=== PATIENT | male | born 1995 | race African-American/Black ===

== ENCOUNTER 2024-06-17 01:14 | Inpatient (IN) | payer MEDICAID, SELFPAY ==
[2024-06-17] VITALS (13 sets, daily range): BP systolic 120–189; BP diastolic 68–102; PULSE 68–92; RESP 16–20; TEMP 36.1–37.1; O2SAT 95–99; BMI 29.4; BMI 32.1
--- NOTE | ~2024-06-17 | XR_ITS ---
CLINICAL HISTORY: Pain; swelling 3 view left hand Comparison: None Findings: No fractures or dislocations. No arthritic change. No erosions. No radiopaque foreign body. IMPRESSION: Generalized soft tissue swelling. No gas or foreign body. No fracture. This document has been electronically signed by: Maggi Brown MD on 06/17/2024 03:03:44
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
[2024-06-17 03:27] LABS: MANUAL DIFF FLAG NO
[2024-06-17 03:28] LABS: Basophils Percent Auto 0.5 % (0-2); Eosinophils Absolute Auto 0.1 X10*3/uL (0.0-0.4); Eosinophils Percent Auto 1.3 % (0-4); Hemoglobin 15.2 g/dl (14.0-18.0); Imm Gran Abs Auto 0.02 X10*3/uL (0.00-0.03); Imm Gran Pct Auto 0.3 % (0.0-0.4); Lymphocytes Absolute Auto 2.8 X10*3/uL (1.2-4.9); Lymphocytes Percent Auto 37.7 % (20-40); Mean Corpuscular HGB Conc 35.3 g/dl (31.0-36.0); Mean Corpuscular Hemoglobin 32.2 pg (27.0-33.0); Mean Corpuscular Volume 91.1 fL (80.0-98.0); Mean Platelet Volume 8.7 fL (9.4-12.4); Monocytes Absolute Auto 0.8 X10*3/uL (0.1-1.2); Monocytes Percent Auto 10.8 % (2-11); Neutrophils Absolute Auto 3.7 x10*3/uL (2.0-8.3); Neutrophils Percent Auto 49.4 % (45-73); Platelet Count 267 X10*3/uL (160-400); Red Blood Count 4.72 X10*6/uL (4.60-5.80); White Blood Count 7.4 X10*3/uL (4.8-10.8)
[2024-06-17] MEDS: Ketorolac Tromethamine 30 MG/ML VIAL IVPUSH (03:40)
[2024-06-17] MEDS: Piperacillin Sodium/Tazobactam 3.375 GM in 0.9 % Sodium Chloride 50 ML IV (03:41)
[2024-06-17 03:43] LABS: Lactic Acid 1.4 mmol/L (0.5-2.0)
[2024-06-17 03:44] LABS: Alanine Aminotransferase 25 U/L (0-40); Albumin Level 4.5 g/dL (3.5-5.0); Anion Gap 16 (12-20); Aspartate Amino Transferase 34 U/L (5-37); Bilirubin Total 0.5 mg/dL (0.0-1.0); Blood Urea Nitrogen 13 mg/dL (9-16); Calcium 10.1 mg/dL (8.4-10.2); Carbon Dioxide 23 mmol/L (22-29); Chloride 110 mmol/L (96-108); Creatinine Clr Calc Pharmacy 119.6; Estimated Glomerular Filt Rate > 60; Glucose Random 88 mg/dL (60-115); Potassium 3.7 mmol/L (3.3-5.1); Sodium 145 mmol/L (135-145); Total Protein 7.4 g/dL (6.5-8.0)
[2024-06-17 03:51] LABS: Alkaline Phosphatase 70 U/L (39-117)
[2024-06-17] MEDS: vancomycin/NS 2,000 MG/500 ML PLAST..BAG 250 MG IV (04:10)
[2024-06-17] MEDS: amLODIPine Besylate 5 MG TABLET PO (05:05)
[2024-06-17] MEDS: Diphth,Pertus(ACell),Tet Adult 0.5 ML SYRINGE IM (05:06)
--- NOTE | 2024-06-17 08:01 | PHA.MEDREC ---
Pharmacy Consult ? Medication Reconciliation Pharmacy has completed the medication reconciliation. Spoke with patient, to confirm he is not on any medication.
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
[2024-06-17] MEDS: Ampicillin Sodium/Sulbactam Na 3 GM in 0.9 % Sodium Chloride 100 ML IV ×3 (09:48→20:39)
[2024-06-17] MEDS: oxyCODONE HCl Immed Release 5 MG TABLET PO ×3 (10:01→20:31)
--- NOTE | 2024-06-17 13:46 | PC.NURSE ---
Pt to the OR
[2024-06-17] MEDS: Lactated Ringers 1,000 ML 80 ML IVCONT ×2 (14:09→20:41)
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
--- NOTE | 2024-06-17 14:25 | PC.NURSE ---
Next dose of scheduled abx due at 1515, pt will likely be in OR or PACU at that time. Pharmacy contacted (spoke with Connie) abx will be delivered to PACU so that it can be given on time.
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
[2024-06-17] MEDS: Acetaminophen 325 MG TABLET 650 MG PO (18:19)
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
[2024-06-17] MEDS: 0.9 % Sodium Chloride Flush 3 ML SYRINGE IVFLUSH (20:44)
[2024-06-18] MEDS: oxyCODONE HCl Immed Release 5 MG TABLET PO ×5 (00:15→23:43)
[2024-06-18] MEDS: Morphine Sulfate 2 MG/ML CARTRIDGE IVPUSH (03:53)
[2024-06-18 03:55] VITALS: BP 147/70; PULSE 63; RESP 18; TEMP 36.6; O2SAT 99
[2024-06-18] MEDS: Ampicillin Sodium/Sulbactam Na 3 GM in 0.9 % Sodium Chloride 100 ML IV ×4 (03:58→20:27)
--- NOTE | 2024-06-18 05:37 | MHC.PIE ---
late entry. p; pt c/o pain 09/15 to lt hand. note; prn oxy 5 mg for pain. note; sp I&D to lt hand 06/17 i; dr griffin notified. new order morphine iv once e; pt asleep comfortably in bed, will cont to monitor
[2024-06-18 06:12] LABS: MANUAL DIFF FLAG NO
[2024-06-18 06:23] LABS: Basophils Percent Auto 0.4 % (0-2); Eosinophils Percent Auto 0.1 % (0-4); Hematocrit 44.2 % (42.0-52.0); Hemoglobin 15.3 g/dl (14.0-18.0); Imm Gran Abs Auto 0.03 X10*3/uL (0.00-0.03); Imm Gran Pct Auto 0.4 % (0.0-0.4); Lymphocytes Percent Auto 12.8 % (20-40); Mean Corpuscular HGB Conc 34.6 g/dl (31.0-36.0); Mean Corpuscular Hemoglobin 31.5 pg (27.0-33.0); Mean Corpuscular Volume 91.1 fL (80.0-98.0); Mean Platelet Volume 8.9 fL (9.4-12.4); Monocytes Absolute Auto 0.9 X10*3/uL (0.1-1.2); Neutrophils Percent Auto 75.3 % (45-73); Platelet Count 266 X10*3/uL (160-400); Red Blood Count 4.85 X10*6/uL (4.60-5.80); Red Cell Distribution Width 12.5 % (11.0-16.0); White Blood Count 7.9 X10*3/uL (4.8-10.8)
[2024-06-18 06:35] LABS: Anion Gap 14 (12-20); Blood Urea Nitrogen 15 mg/dL (9-16); Calcium 9.4 mg/dL (8.4-10.2); Carbon Dioxide 21 mmol/L (22-29); Chloride 107 mmol/L (96-108); Creatinine Clr Calc Pharmacy 132.4; Estimated Glomerular Filt Rate > 60; Glucose Fasting 91 mg/dL (60-99); Sodium 138 mmol/L (135-145)
[2024-06-18 07:33] VITALS: BP 146/77; PULSE 64; RESP 18; TEMP 37.4; O2SAT 95
[2024-06-18] MEDS: Lactated Ringers 1,000 ML 80 ML IVCONT (08:43)
[2024-06-18 08:44] VITALS: BP 146/77
[2024-06-18] MEDS: amLODIPine Besylate 5 MG TABLET PO (08:44)
[2024-06-18] MEDS: Acetaminophen 325 MG TABLET 650 MG PO ×2 (08:53→19:43)
--- NOTE | 2024-06-18 09:14 | MHC.CM.PN ---
Addendum entered by Amita Moses RN 06/18/24 13:16: PATIENT SEEN BY [facility] FOR ETOH. RESOURCE GUIDE PROVIDED. THIS CM ALSO PROVIDED SEPERATE LIST OF LOCAL MENTAL HEALTH COUNSELORS PER REQUEST. Original Note: PATIENT LIVES IN A HOME W/ GIRLFRIEND. FUNCTIONALLY INDEPENDENT. DENIES USE OF DME OR SERVICES. NO PCP. PROVIDED [facility] BROCH[employer] & CONTACT INFORMATION FOR [facility]. PATIENT HAS CT MEDICAID, INSURANCE NAVIGATORS AT [facility] CAN HELP SWITCH TO [facility]. NO HCP. CM PROVIDED EDUCATION AND OFFERED ASSISTANCE. PATIENT DECLINED. DP: GOAL IS HOME SELF CARE. GIRLFRIEND CAN ASSIST W/ WOUND CARE. GIRLFRIEND TRANSPORT.
--- NOTE | 2024-06-18 09:40 | HO.ADDICTCON ---
History of Present Illness Date of Service: 06/18/2024 Chief Complaint: L hand Reason for Consult: +AUDIT C screen Sources of Information: patient interviewed and chart reviewed HPI Narrative: Patient is a 29 year old male medically admitted with abscess to the left hand --I&D yesterday (06/17) Consult requested as patient screen +AUDIT C and requesting brief intervention. Patient seen in room 383. He is awake, alert, pleasant and engaged in interview. He reports that he has been drinking essentially daily since he was 23 years old. Currently drinking about a bottle of wine daily, however he would like to abstain entirely He states that over the last year or so he has been working on decreasing alcohol intake and stopped hard liquor entirely, of which he states he was drinking an pint of rum daily (before switching to wine) He denies any history or withdrawal sx, including tremors, GI upset, anxiety etc. Currently denies withdrawal sx, and none evident when seen by this typewriter ribbon winder. Substance use and treatment history Denies any other substance use, aside from cannabis Reports history of [facility] treatment while incarcerated Discussed CYNDEE--states he trialed possibly tiraled Naltrexone, but is not positive if that is the medication Iola nauseous with this medication, but willing to try it again Denies any history of ATS, CSS, IOP etc. Does report family history of AUD AUDIT-C Brief Intervention This typewriter ribbon winder met with patient to discuss current alcohol use and concerns related to increased risk of alcohol related problems. Discussed how alcohol use has impacted health, including negative impact on mental health and overall physical wellbeing. Discussed risk reduction strategies including drinking below the recommended limit. Medical Evaluation Reviewed: Yes Review of Systems Constitutional: Reports as per HPI Gastrointestinal: Denies abdominal pain, Denies heartburn, Denies loose stools and Denies nausea Diagnostics Vital Signs (24Hr): Vital Signs - 24 hr 06/17/24 11:29 06/17/24 14:05 06/17/24 16:20 Temperature 98.0 F 98.4 F 97 F Pulse Rate 73 92 74 Respiratory Rate 16 18 20 Blood Pressure 155/87 H 156/94 H 142/85 H Pulse Oximetry 97 98 97 Oxygen Delivery Method Room Air Room Air Room Air 06/17/24 16:25 06/17/24 16:30 06/17/24 16:35 Temperature Pulse Rate 70 82 71 Respiratory Rate 17 18 18 Blood Pressure 143/91 H 135/102 H 137/89 Pulse Oximetry 97 96 96 Oxygen Delivery Method Room Air Room Air Room Air 06/17/24 16:50 06/17/24 18:12 06/17/24 20:00 Temperature 98 F 97 F 97.3 F Pulse Rate 68 78 81 Respiratory Rate 18 16 20 Blood Pressure 137/86 168/89 H 163/80 H Pulse Oximetry 95 95 98 Oxygen Delivery Method Room Air Room Air Room Air 06/18/24 03:55 06/18/24 07:33 06/18/24 08:44 Temperature 97.8 F 99.3 F Pulse Rate 63 64 Respiratory Rate 18 18 Blood Pressure 147/70 H 146/77 H 146/77 H Pulse Oximetry 99 95 Oxygen Delivery Method Room Air Room Air BMI result Body Mass Index 32.1 Labs 06/18/24 05:59 06/18/24 05:59 Labs: Laboratory Results - last 48 hr 06/17/24 06/18/24 03:20 05:59 WBC 7.4 7.9 RBC 4.72 4.85 Hgb 15.2 15.3 Hct 43.0 44.2 MCV 91.1 91.1 MCH 32.2 31.5 MCHC 35.3 34.6 RDW 13.0 12.5 Plt Count 267 266 MPV 8.7 L 8.9 L Immature Gran % (Auto) 0.3 0.4 Neut % (Auto) 49.4 75.3 H Lymph % (Auto) 37.7 12.8 L [place] % (Auto) 10.8 11.0 Eos % (Auto) 1.3 0.1 Baso % (Auto) 0.5 0.4 Lymph # (Auto) 2.8 1.0 L [place] # (Auto) 0.8 0.9 Eos # (Auto) 0.1 0.0 Baso # (Auto) 0.0 0.0 Abs Immat Gran (auto) 0.02 0.03 Absolute Neuts (auto) 3.7 6.0 Absolute Nucleated RBC 0.000 0.000 Nucleated RBC % (auto) 0.0 0.0 Sodium 145 138 Potassium 3.7 4.0 Chloride 110 H 107 Carbon Dioxide 23 21 L Anion Gap 16 14 BUN 13 15 Creatinine 1.03 0.97 Estim Creat Clear Calc 119.6 132.4 Estimated GFR > 60 > 60 Random Glucose 88 Fasting Glucose 91 Lactic Acid 1.4 Calcium 10.1 9.4 D Total Bilirubin 0.5 AST 34 ALT 25 Alkaline Phosphatase 70 Total Protein 7.4 Albumin 4.5 Mental Status Exam Mental Status Exam Patient Appearance: Appropriate Patient Orientation: Person, Place, Time and Situation Level of Consciousness: Awake, Appropriate and Alert Patient Behavior: Appropriate Mood Description: Calm Affect Description: Calm Speech Pattern: Clear Hallucinations: None Thought Process: Intact Thought Content: positive for Intact Judgement: Good Medications Medications Current Medications Acetaminophen (Acetaminophen 325 Mg Tablet) 650 mg PO Q6H PRN PRN Reason: Pain, Mild 1-3,fever,headache Last Admin: 06/18/24 08:53 Dose: 650 mg Amlodipine Besylate (Amlodipine Besylate 5 Mg Tablet) 5 mg PO DAILY [facility]; Protocol Last Admin: 06/18/24 08:44 Dose: 5 mg Ampicillin Sodium/Sulbactam (Sodium 3 gm/ Sodium Chloride) 100 mls @ 200 mls/hr IV Q6H [facility] Last Admin: 06/18/24 08:43 Dose: 200 mls/hr Lactated Ringer's (Lr) 1,000 mls @ 80 mls/hr IVCONT .[id number] [facility] Last Admin: 06/18/24 08:43 Dose: 80 mls/hr Naloxone HCl (Naloxone Hcl 0.4 Mg/Ml Vial) 0.04 mg IVPUSH Q5M PRN PRN Reason: Excessive sedation or RR < 8 Oxycodone HCl (Oxycodone Hcl Immed Release 5 Mg Tablet) 5 mg PO Q4H PRN PRN Reason: Pain, Severe (Pain Scale 7-10) Last Admin: 06/18/24 08:53 Dose: 5 mg Sodium Chloride (0.9 % Sodium Chloride Flush 3 Ml Syringe) 3 ml IVFLUSH QSHIFT [facility] Last Admin: 06/18/24 07:52 Dose: Not Given Allergies Allergies Allergy/AdvReac Type Severity Reaction Status Date / Time No Known Allergies Allergy Verified 06/17/24 01:23 Assessment & Plan Assessment & Plan (1) Alcohol use disorder, mild, abuse: Status: Acute Code(s): F10.10 - Alcohol abuse, uncomplicated Assessment and Plan: no withdrawal sx noted or reprted naltrexone 25mg QD to be started following discharge (currently receiving oxycodone for pain)--reviewed medication, side effects, goals of treatment etc. Also provided written clinical information appt scheduled at [facility] (06/24/24) information provided to patient and in discharge plan no follow up indicated at this time, pls reconsult if necesary Total time managing care of this patient today __35__ minutes. PMFSH Social History Social History Household Members: Significant Other Housing: Apartment Are you a primary intensive care unit nurse to a significant other at home: No Do you presently have visiting nurse or other home services: No Alcohol intake: current Alcohol intake frequency: 3 or more drinks per day Alcohol type: hard liquor Patient Tobacco Use Status: Never used Tobacco Second Hand Smoke Exposure: No Substance Use Type: Marijuana service: No
--- NOTE | 2024-06-18 10:52 | HO.POSTANES ---
Post Anesthesia Evaluation Post Anesthesia Evaluation Date of Service: 06/18/24 Vital Signs: Vital Signs Temp Pulse Resp BP Pulse Ox O2 Del Method 06/18/24 08:44 146/77 H 06/18/24 07:33 99.3 F 64 18 146/77 H 95 Room Air 06/18/24 03:55 97.8 F 63 18 147/70 H 99 Room Air Anesthesia: General Mental Status: Awake Pain Control: Satisfactory Nausea/Vomiting: None Hydration: Adequate Anesthesia-Related Issues: No Anes. Related Issues
[2024-06-18 12:15] LABS: Appearance Urine Clear; Color Urine Yellow; Glucose Urine UA Negative (Negative); Leukocyte Esterase Urine Negative (Negative); Nitrite Urine Negative (Negative); Specific Gravity - Urine >= 1.030 (1.005-1.025); Urine Blood Negative (Negative); Urine Ketones 15 mg/dL (Negative); Urine Protein Trace mg/dL (Neg-Trace)
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
[2024-06-18 14:59] VITALS: BP 156/91; PULSE 88; RESP 16; TEMP 37.4; O2SAT 97
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
[2024-06-18 16:37] LABS: CT PCR NOT DETECTED (Not Detect.); NG PCR NOT DETECTED (Not Detect.)
[2024-06-18 19:51] VITALS: BP 151/92; PULSE 83; RESP 18; TEMP 37.1; O2SAT 99
[2024-06-18] MEDS: 0.9 % Sodium Chloride Flush 3 ML SYRINGE IVFLUSH (20:27)
[2024-06-19] MEDS: Ampicillin Sodium/Sulbactam Na 3 GM in 0.9 % Sodium Chloride 100 ML IV ×4 (03:01→20:56)
[2024-06-19 03:14] VITALS: BP 134/78; PULSE 60; RESP 20; TEMP 36.6; O2SAT 95
[2024-06-19 06:38] LABS: MANUAL DIFF FLAG NO
[2024-06-19 07:07] LABS: Basophils Percent Auto 0.5 % (0-2); Eosinophils Absolute Auto 0.1 X10*3/uL (0.0-0.4); Hematocrit 41.7 % (42.0-52.0); Hemoglobin 14.6 g/dl (14.0-18.0); Imm Gran Abs Auto 0.02 X10*3/uL (0.00-0.03); Imm Gran Pct Auto 0.3 % (0.0-0.4); Lymphocytes Absolute Auto 2.1 X10*3/uL (1.2-4.9); Lymphocytes Percent Auto 37.3 % (20-40); Mean Corpuscular Hemoglobin 31.7 pg (27.0-33.0); Mean Corpuscular Volume 90.5 fL (80.0-98.0); Mean Platelet Volume 9.1 fL (9.4-12.4); Monocytes Absolute Auto 0.9 X10*3/uL (0.1-1.2); Monocytes Percent Auto 16.2 % (2-11); Neutrophils Absolute Auto 2.6 x10*3/uL (2.0-8.3); Neutrophils Percent Auto 44.7 % (45-73); Platelet Count 251 X10*3/uL (160-400); Red Blood Count 4.61 X10*6/uL (4.60-5.80); Red Cell Distribution Width 12.9 % (11.0-16.0); White Blood Count 5.7 X10*3/uL (4.8-10.8)
[2024-06-19 07:15] LABS: Anion Gap 13 (12-20); Blood Urea Nitrogen 10 mg/dL (9-16); Calcium 8.7 mg/dL (8.4-10.2); Carbon Dioxide 26 mmol/L (22-29); Chloride 106 mmol/L (96-108); Creatinine Clr Calc Pharmacy 124.7; Estimated Glomerular Filt Rate > 60; Glucose Fasting 83 mg/dL (60-99); Potassium 3.5 mmol/L (3.3-5.1); Sodium 141 mmol/L (135-145)
[2024-06-19] MEDS: amLODIPine Besylate 5 MG TABLET PO (07:16)
[2024-06-19] MEDS: oxyCODONE HCl Immed Release 5 MG TABLET PO ×3 (07:16→18:43)
[2024-06-19] MEDS: 0.9 % Sodium Chloride Flush 3 ML SYRINGE IVFLUSH ×3 (07:17→20:57)
[2024-06-19 07:21] VITALS: BP 164/65; PULSE 67; RESP 18; TEMP 37.3; O2SAT 98
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
--- NOTE | 2024-06-19 12:12 | MHC.CM.PN ---
Per MD rounds patient not medically cleared for dc at this time. CM will continue to follow.
[2024-06-19] MEDS: Acetaminophen 325 MG TABLET 650 MG PO ×2 (12:29→21:05)
[2024-06-19 14:53] VITALS: BP 139/78; PULSE 65; RESP 16; TEMP 37.4; O2SAT 98
[2024-06-19 19:35] VITALS: BP 151/78; PULSE 70; RESP 18; TEMP 37.1; O2SAT 95
[2024-06-19 20:18] LABS: Trichomonas vag. RNA Ur Male NOT DETECTED (NOT DETECTED)
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
[2024-06-20] MEDS: oxyCODONE HCl Immed Release 5 MG TABLET PO (03:32)
[2024-06-20] MEDS: Ampicillin Sodium/Sulbactam Na 3 GM in 0.9 % Sodium Chloride 100 ML IV ×2 (03:33→08:19)
[2024-06-20 04:00] VITALS: BP 140/70; PULSE 65; RESP 18; TEMP 36.4; O2SAT 97
[2024-06-20 06:25] LABS: MANUAL DIFF FLAG NO
[2024-06-20 06:33] LABS: Basophils Percent Auto 0.7 % (0-2); Eosinophils Absolute Auto 0.2 X10*3/uL (0.0-0.4); Eosinophils Percent Auto 2.5 % (0-4); Hematocrit 45.1 % (42.0-52.0); Hemoglobin 15.9 g/dl (14.0-18.0); Imm Gran Abs Auto 0.04 X10*3/uL (0.00-0.03); Imm Gran Pct Auto 0.7 % (0.0-0.4); Lymphocytes Absolute Auto 2.4 X10*3/uL (1.2-4.9); Lymphocytes Percent Auto 39.8 % (20-40); Mean Corpuscular HGB Conc 35.3 g/dl (31.0-36.0); Mean Corpuscular Hemoglobin 31.7 pg (27.0-33.0); Mean Platelet Volume 8.6 fL (9.4-12.4); Monocytes Absolute Auto 1.1 X10*3/uL (0.1-1.2); Monocytes Percent Auto 18.1 % (2-11); Neutrophils Absolute Auto 2.3 x10*3/uL (2.0-8.3); Neutrophils Percent Auto 38.2 % (45-73); Platelet Count 279 X10*3/uL (160-400); Red Blood Count 5.01 X10*6/uL (4.60-5.80); Red Cell Distribution Width 12.8 % (11.0-16.0); White Blood Count 5.9 X10*3/uL (4.8-10.8)
[2024-06-20 06:49] LABS: Anion Gap 14 (12-20); Blood Urea Nitrogen 9 mg/dL (9-16); Calcium 9.3 mg/dL (8.4-10.2); Carbon Dioxide 23 mmol/L (22-29); Chloride 107 mmol/L (96-108); Creatinine Clr Calc Pharmacy 133.8; Estimated Glomerular Filt Rate > 60; Glucose Fasting 77 mg/dL (60-99); Potassium 3.6 mmol/L (3.3-5.1); Sodium 140 mmol/L (135-145)
[2024-06-20 07:21] VITALS: BP 139/74; PULSE 62; RESP 18; TEMP 36.9; O2SAT 97
[2024-06-20] MEDS: amLODIPine Besylate 5 MG TABLET PO (08:19)
[2024-06-20] MEDS: 0.9 % Sodium Chloride Flush 3 ML SYRINGE IVFLUSH (08:19)
[2024-06-20 08:38] LABS: HIV AB/AG Nonreactive (Nonreactive); HIV Num 1 0.11 S/CO (0.00-0.99)
[2024-06-20 08:40] LABS: ~HepC Num1 0.08 S/CO (0.00-0.79); ~Hepatitis C Antibody Nonreactive (Nonreactive)
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
[2024-06-20] MEDS: Throat Lozenge, Medicated LOZENGE 1 LOZENGE MUCOUS MEM (11:00)
[2024-06-20 12:16] VITALS: BP 148/93; PULSE 69; RESP 18; TEMP 36.9; O2SAT 97
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
[2024-06-20] MEDS: Acetaminophen 325 MG TABLET 650 MG PO (12:48)
--- NOTE | 2024-06-20 12:52 | MHC.CM.PN ---
Patient medically cleared for dc home self care. Girlfriend at bedside and will transport.
== END 2024-06-20 13:48 | disposition home or self-care (01) | DRG 316 ==
LOC: HO.ED 08:47 → HO.EDOVER 09:37 → HO.S3 09:57
PROVIDERS: Family Medicine; Internal Medicine; Orthopaedic Surgery; Student in an Organized Health Care Education/Training Program; Emergency Provider Internal Medicine
PROC: 0R9V0ZZ Drainage of Left Metacarpophalangeal Joint, Open Approach (ICD-10-PCS; principal; 2024-06-17 15:00)
DX: M00.9 Pyogenic arthritis, unspecified (principal); A64 Unspecified sexually transmitted disease; F10.20 Alcohol dependence, uncomplicated; L02.512 Cutaneous abscess of left hand; T36.96XA Underdosing of unspecified systemic antibiotic, initial encounter; Y04.1XXA Assault by human bite, initial encounter; Z79.899 Other long term (current) drug therapy
CPT/HCPCS: 36415; 73130; 80048; 80053; 81003; 83605; 85025; 86803; 87040; 87070; 87205; 87389; 87491; 87591; 87661; 90715; 99285; J0295; J1100; J1885; J2003; J2004; J2250; J2270; J2405; J2543; J2704; J3010; J3370; J7120

== ENCOUNTER → 2024-06-17 01:35 | Outpatient (BNV) | payer MEDICAID, SELFPAY | PROVIDERS: Emergency Provider Internal Medicine; Visit Provider Radiology Diagnostic Radiology | DX: M79.89 Other specified soft tissue disorders (principal) | CPT/HCPCS: 73130 ==

== ENCOUNTER → 2024-06-17 01:46 | Outpatient (BNV) | payer MEDICAID, SELFPAY | PROVIDERS: Emergency Provider Internal Medicine | DX: F10.10 Alcohol abuse, uncomplicated (principal); L02.512 Cutaneous abscess of left hand | CPT/HCPCS: 26075; 99024; 99222 ==

== ENCOUNTER → 2024-06-17 09:37 | Outpatient (BNV) | payer MEDICAID, SELFPAY | PROVIDERS: Emergency Provider Internal Medicine; Visit Provider Student in an Organized Health Care Education/Training Program | DX: L02.512 Cutaneous abscess of left hand (principal); M65.949 Unspecified synovitis and tenosynovitis, unspecified hand | CPT/HCPCS: 99223; 99232 ==

== ENCOUNTER → 2024-06-17 09:37 | Outpatient (BNV) | payer MEDICAID, SELFPAY | PROVIDERS: Emergency Provider Internal Medicine; Visit Provider Internal Medicine | DX: L02.512 Cutaneous abscess of left hand (principal); M65.949 Unspecified synovitis and tenosynovitis, unspecified hand | CPT/HCPCS: 99222 ==

== ENCOUNTER → 2024-06-17 09:37 | Outpatient (BNV) | payer MEDICAID, SELFPAY | PROVIDERS: Emergency Provider Internal Medicine; Visit Provider Nurse Practitioner Psychiatric/Mental Health | DX: F10.10 Alcohol abuse, uncomplicated (principal) | CPT/HCPCS: 99222 ==

== ENCOUNTER 2024-06-24 13:41 | Outpatient (AMB) | payer MEDICAID, SELFPAY ==
--- NOTE | 2024-06-24 13:46 | MHC.OFFVIS ---
Vital Signs 06/24/24 14:02 Height 5 ft 9 in Weight 208 lb BMI 30.7 Pulse 94 Pulse Source Pulse Oximeter Pulse Oximetry (%) 98 Oxygen Delivery Method Room Air Intake Visit Reasons: Alcohol Allergies No Known Allergies Allergy (Verified 06/24/24 14:03) HPI HPI Alcohol: Details: He has left hand infection resolving after bite and is taking Augmentin. However he has insomniaand needs to drink to fall asleep. He is interested in starting naltrexone and will let us know when needs intake. [facility] Social History Household Members: Significant Other Housing: Apartment Are you a primary home care manager rn to a significant other at home: No Do you presently have visiting nurse or other home services: No Alcohol intake: current Alcohol intake frequency: 3 or more drinks per day Alcohol type: hard liquor Patient Tobacco Use Status: Never used Tobacco Second Hand Smoke Exposure: No Substance Use Type: Marijuana service: No Review of Systems Const All systems reviewed & are unremarkable except as noted in HPI and below Physical Exam Vital Signs: Last Vital Signs Pulse 94 06/24/24 14:02 Pulse Ox 98 06/24/24 14:02 Oxygen Delivery Method Room Air 06/24/24 14:02 BMI result Body Mass Index 30.7 Const General: cooperative Results AMB 14 Panel Urine Drug Screen Urine Marijuana (THC) Positive Last Edit by Emma Hwang CMA on 06/24/24 14:05 Urine Cocaine Negative Last Edit by Emma Hwang CMA on 06/24/24 14:05 Urine Morphine Negative Last Edit by Emma Hwang CMA on 06/24/24 14:05 Urine Methamphetamine Negative Last Edit by Emma Hwang CMA on 06/24/24 14:05 Urine Amphetamine Negative Last Edit by Emma Hwang CMA on 06/24/24 14:05 Urine Benzodiazepine Negative Last Edit by Emma Hwang CMA on 06/24/24 14:05 Urine Barbiturates Negative Last Edit by Emma Hwnag CMA on 06/24/24 14:05 Urine Methadone Negative Last Edit by Emma Hwang CMA on 06/24/24 14:05 Urine Buprenorphine Negative Last Edit by Emma Hwang CMA on 06/24/24 14:05 Urine Tricyclic Antidepressant Negative Last Edit by Emma Hwang CMA on 06/24/24 14:05 Urine MDMA Negative Last Edit by Emma Hwang CMA on 06/24/24 14:05 Urine Oxycodone Negative Last Edit by Emma Hwang CMA on 06/24/24 14:05 Urine Phencyclidine Negative Last Edit by Emma Hwang CMA on 06/24/24 14:05 Urine Propoxyphene Negative Last Edit by Emma Hwang CMA on 06/24/24 14:05 Results Reviewed Results Reviewed: Laboratory Last Values POC Urine Buprenorphine Negative 06/24/24 13:46 POC Urine Morphine Negative 06/24/24 13:46 POC Urine Oxycodone Negative 06/24/24 13:46 POC Urine Methadone Negative 06/24/24 13:46 POC Urine Propoxyphene Negative 06/24/24 13:46 POC Urine Barbiturates Negative 06/24/24 13:46 POC U Tricyclic Antidpr Negative 06/24/24 13:46 POC Urine PCP Negative 06/24/24 13:46 POC Ur Amphetamines Negative 06/24/24 13:46 POC Ur Methamphetamine Negative 06/24/24 13:46 POC Urine MDMA Negative 06/24/24 13:46 POC Ur Benzodiazepine Negative 06/24/24 13:46 POC Urine Cocaine Negative 06/24/24 13:46 POC Ur Marijuana (THC) Positive 06/24/24 13:46 Assessment & Plan Assessment & Plan (1) Alcohol use disorder, mild, abuse: Comment: Trazodone 50 mg hs sleep. Code(s): F10.10 - Alcohol abuse, uncomplicated Category: Medical Plan: na (2) Abscess of left hand: Code(s): L02.512 - Cutaneous abscess of left hand Category: Medical Plan: Finish antibiotics.Follow with Hand prn need. See us if wants naltrexone. Orders: Orders AMB 14 Panel Urine Drug Screen Today Z51.81 - Encounter for therapeutic drug level monitoring Medications: New trazodone 50 mg PO BEDTIME PRN 30 tabs 1RF sleep Coding Level of Care Code Est Pt Level 3 (43643) Diagnoses Alcohol use disorder, mild, abuse F10.10 Abscess of left hand L02.512
[2024-06-24 14:02] VITALS: PULSE 94; O2SAT 98; BMI 30.7
== END 2024-06-24 14:32 | disposition home or self-care (01) ==
LOC: HO.HCC 13:41
PROVIDERS: Visit Provider Internal Medicine
DX: F10.10 Alcohol abuse, uncomplicated (principal); L02.512 Cutaneous abscess of left hand; Z51.81 Encounter for therapeutic drug level monitoring
CPT/HCPCS: 99213

== ENCOUNTER → 2024-06-24 13:41 | Outpatient (BNVA) | payer MEDICAID, SELFPAY | PROVIDERS: Visit Provider Internal Medicine | DX: F10.10 Alcohol abuse, uncomplicated (principal); L02.512 Cutaneous abscess of left hand; Z51.81 Encounter for therapeutic drug level monitoring | CPT/HCPCS: 80307; 99212 ==

== ENCOUNTER 2024-06-25 11:10 | Outpatient (AMB) | payer MEDICAID, SELFPAY ==
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
[2024-06-25 11:51] VITALS: BMI 30.9
== END 2024-06-25 12:31 | disposition home or self-care (01) ==
LOC: HO.HOS 11:10
PROVIDERS: Visit Provider Orthopaedic Surgery
DX: L02.512 Cutaneous abscess of left hand (principal); S61.452A Open bite of left hand, initial encounter; L08.9 Local infection of the skin and subcutaneous tissue, unspecified; F10.10 Alcohol abuse, uncomplicated
CPT/HCPCS: 99024

== ENCOUNTER → 2024-06-25 11:11 | Outpatient (BNV) | payer MEDICAID, SELFPAY | PROVIDERS: Visit Provider Radiology Diagnostic Radiology | DX: M79.642 Pain in left hand (principal) | CPT/HCPCS: 73130 ==

== ENCOUNTER 2024-06-25 12:11 | Outpatient (REF) | payer MEDICAID, SELFPAY ==
--- NOTE | ~2024-06-25 | XR_ITS ---
EXAMINATION: XR HAND, LEFT CLINICAL INFORMATION: M79.642 - Pain in left hand COMPARISON: June 17, 2024. TECHNIQUE: PA, lateral, and oblique views of the left hand. FINDINGS: The carpal bones are intact with normal alignment. The metacarpals are intact. The phalanges are intact with normal alignment. No metallic or radiopaque foreign body. No subcutaneous emphysema. There is preservation of the joint spaces. Distal radius and ulna are intact. XR/XR hand LT min 3V IMPRESSION: No acute fracture or dislocation. Negative x-ray. Electronically signed by: Rafael Troncoso MD 06/25/2024 11:26 AM EDT
== END 2024-06-25 12:12 | disposition home or self-care (01) ==
LOC: HO.HOSX 12:11
PROVIDERS: Visit Provider Orthopaedic Surgery
DX: M79.642 Pain in left hand (principal); S61.452D Open bite of left hand, subsequent encounter; L02.512 Cutaneous abscess of left hand; L08.9 Local infection of the skin and subcutaneous tissue, unspecified
CPT/HCPCS: 73130; 99212